=== PATIENT | male | born 1970 | race Caucasian/White ===

== ENCOUNTER 2020-05-03 12:50 | Outpatient (REF) | payer OTHER, SELFPAY | END 2020-05-03 12:51 | disposition home or self-care (01) | LOC: HO.LAB 12:50 | PROVIDERS: Visit Provider Internal Medicine | DX: Z20.828 Contact with and (suspected) exposure to other viral communicable diseases (principal) | CPT/HCPCS: C9803; U0003 ==

== ENCOUNTER 2020-12-18 13:57 | Emergency (ER) | payer OTHER, SELFPAY ==
--- NOTE | ~2020-12-18 | CT_ITS ---
EXAMINATION: CT HEAD WITHOUT CONTRAST CLINICAL INFORMATION: Left-sided headache. Intermittent lightheadedness. Blurred vision. COMPARISON: None. TECHNIQUE: Contiguous axial imaging was performed from the skull base to vertex without intravenous administration of contrast. Coronal and sagittal reformatted images are performed at the CT scanner. [This CT examination was performed using dose optimization techniques as appropriate, variously including the following: *Automated exposure control *Adjustment of mA and/or kV according to patient size (this includes techniques or standardized protocols for targeted exams where dose is matched to indication/reason for exam; i.e. extremities or head) *Use of iterative reconstruction technique] DLP: 850 mGy-cm. FINDINGS: There is no evidence of acute intracranial hemorrhage or territorial infarction. No abnormal mass-effect or midline shift is seen. Major to white matter differentiation is well preserved. No extra-axial fluid collections are identified. There is generalized global volume loss. There is mild prominence of the ventricles and the sulci . There is mild hypodensity of the periventricular white matter due to chronic small vessel ischemic disease. There are vascular calcifications of the internal carotid arteries bilaterally. There is no osseous abnormality. The mastoid air cells and visualized portions of the paranasal sinuses are well-aerated. CT/CT head/brain wo con IMPRESSION: No acute intracranial pathology.
[2020-12-18 14:09] VITALS: BP 130/85; PULSE 86; RESP 16; TEMP 36.7; O2SAT 93; BMI 43.2
--- NOTE | 2020-12-18 17:00 | ECG_ITS ---
Test Reason : FALL Blood Pressure : / mmHG Vent. Rate : 074 BPM Atrial Rate : 074 BPM P-R Int : 116 ms QRS Dur : 082 ms QT Int : 400 ms P-R-T Axes : 043 002 041 degrees QTc Int : 444 ms Normal sinus rhythm Normal ECG No previous ECGs available Referred By: Meagan Pierre Electronically Signed By:BELEN KENNEDY MD
[2020-12-18 17:20] VITALS: BP 120/82; PULSE 69; RESP 20; O2SAT 97
[2020-12-18 17:21] VITALS: BP 127/72; PULSE 67
[2020-12-18 17:22] VITALS: BP 141/73; PULSE 66
[2020-12-18 17:24] VITALS: BP 138/79; PULSE 73
[2020-12-18 17:38] LABS: MANUAL DIFF FLAG NO
[2020-12-18 17:39] LABS: Basophils Percent Auto 0.2 % (0-2); Eosinophils Absolute Auto 0.2 X10*3/uL (0.0-0.4); Eosinophils Percent Auto 1.8 % (0-4); Hematocrit 43.5 % (42-52); Hemoglobin 14.5 g/dl (14.0-18.0); Imm Gran Abs Auto 0.03 X10*3/uL (0.00-0.03); Imm Gran Pct Auto 0.3 % (0.0-0.4); Lymphocytes Percent Auto 29.2 % (20-40); Mean Corpuscular HGB Conc 33.3 g/dl (31.0-36.0); Mean Corpuscular Hemoglobin 30.7 pg (27.0-33.0); Mean Platelet Volume 11.1 fL (9.4-12.4); Monocytes Absolute Auto 0.5 X10*3/uL (0.1-1.2); Neutrophils Absolute Auto 6.4 X10*3/uL (2.0-8.3); Neutrophils Percent Auto 63.5 % (45-73); Platelet Count 203 X10*3/uL (160-400); Red Blood Count 4.73 X10*6/uL (4.60-5.80); Red Cell Distribution Width 13.6 % (11.0-16.0); White Blood Count 10.1 X10*3/uL (4.8-10.8)
[2020-12-18] MEDS: diphenhydrAMINE HCL 50 MG/ML VIAL 12.5 MG IVPUSH (17:40)
[2020-12-18] MEDS: Metoclopramide HCl 10 MG/2 ML VIAL IVPUSH (17:40)
[2020-12-18] MEDS: Acetaminophen 325 MG TABLET 650 MG PO (17:40)
[2020-12-18] MEDS: 0.9 % Sodium Chloride 1,000 ML 999 ML IVCONT (17:41)
--- NOTE | 2020-12-18 17:45 | PC.NURSE ---
pt had a fall at home three months ago, hit his head on the dresser. since then having headaches that are getting worse, with some blurry vision, pain in the front that wraps to the left side and lots of pressure on the back of head. pt alert and oriented, all nuero in tact, vs stable
[2020-12-18 18:11] LABS: Alanine Aminotransferase 39 U/L (0-40); Albumin Level 4.1 g/dL (3.5-5.0); Alkaline Phosphatase 74 U/L (39-117); Anion Gap 16 (12-20); Aspartate Amino Transferase 37 U/L (5-37); Bilirubin Direct < 0.2 mg/dL (0.0-0.5); Bilirubin Total 0.5 mg/dL (0.0-1.0); Blood Urea Nitrogen 12 mg/dL (9-16); Calcium 9.1 mg/dL (8.4-10.2); Carbon Dioxide 24 mmol/L (22-29); Chloride 102 mmol/L (96-108); Creatinine Clr Calc Pharmacy 131.7; Estimated Glomerular Filt Rate > 60; Glucose Random 186 mg/dL (60-115); Magnesium 1.8 mg/dL (1.6-2.6); Potassium 4.9 mmol/L (3.3-5.1); Sodium 137 mmol/L (135-145); Total Protein 7.7 g/dL (6.5-8.0); Troponin-I High Sensitivity < 3.5 ng/L (<3.5-35.0)
--- NOTE | 2020-12-18 18:11 | ED.HEATRA ---
HPI - Head Injury General Chief complaint: Head Injury Stated complaint: head injury from fall Time Seen by Provider: 12/18/20 16:48 Source: patient Mode of arrival: ambulatory History of Present Illness HPI Narrative: 50-year-old male with a past medical history of diabetes, diverticulitis, hyperlipidemia, hypertension, sleep apnea, to the ED complaining of left-sided headache s/p slip and fall and hitting head on dresser 4 months ago, now with intermittent lightheadedness episodes, and constant daily headaches since incident. Admits saw PCP and is scheduled for outpatient CT which he has not yet obtained. Also reports intermittent bilateral blurry vision and generalized fatigue. Denies taking anticoagulation. Denies numbness, tingling, weakness, visual loss, CP/SOB, abdominal pain, nausea/vomiting MD Complaint: head injury and head pain Related Data Previous Rx's Medication Instructions Recorded vegaxllajj-ligpewfnzcotq-crqv 1 cap PO Q4-6H PRN #14 cap 12/18/20 [Fioricet] ibuprofen 400 mg PO Q6H 7 Days #28 tab 12/18/20 Allergies Allergy/AdvReac Type Severity Reaction Status Date / Time No Known Allergies Allergy Verified 12/18/20 14:15 [No Known Allergies*] Review of Systems Review of Systems: Constitutional: No Fever, No Chills, +fatigue ENT/Mouth: No Ear Pain, No Nasal Congestion, No sore throat, No Rhinorrhea Eyes: No Eye Pain, +Vision Changes Cardiovascular: No Chest Pain, No SOB Respiratory: No Cough, No Dyspnea Gastrointestinal: No Nausea, No Vomiting, No Diarrhea, No Abdominal pain Musculoskeletal: No joint pain, No Myalgias, No Joint Swelling Skin: No Skin Lesions, No rash Neuro: No Weakness, No Numbness, No Paresthesias, No Loss of Consciousness, + lightheadedness,+ Headache Yes all other systems are reviewed and are negative Neurologic: Denies Abnormal speech present [facility] Past Medical History Attestation statement: The following information was validated with the patient. Medical History (Updated 12/18/20 @ 18:21 by KAYLEY Corado) Diabetes Diverticulosis Hyperlipidemia Hypertension Sleep apnea Social History Social History Patient Tobacco Use Status: Current someday Tobacco user Use of substances other than those prescribed or required for medical reasons: No Advance Directives: No Advance Directives Information Provided: No Physical Exam Vital Signs: Vital Signs: Last Vital Signs Temp 98.0 F 12/18/20 14:09 Pulse 73 12/18/20 17:24 Resp 20 12/18/20 17:20 BP 138/79 12/18/20 17:24 Pulse Ox 97 12/18/20 17:20 Body Mass Index 43.2 Const: General: cooperative, healthy appearing, no acute distress, well developed, alert and awake Orientation/consciousness: patient oriented x3 Limitations: no limitations HENMT: Head: Yes normal to inspection, Yes atraumatic, No Espinoza's sign and No raccoon eyes Ears: hearing grossly normal bilaterally General nose exam: Normal external nose present Face and sinus: Yes normal facial exam Mouth: Normal oral and palatal mucosa present Throat: Yes posterior oropharynx normal Eyes: General: appearance normal, both eyes and all related structures Pupils: Equal, round and reactive pupils present EOM: EOMs intact bilaterally Neck: Neck: Yes normal visual inspection and Yes no meningeal signs Resp: Effort & Inspection: normal respiratory effort Auscultation: clear to auscultation bilaterally, no rhonchi and no wheezes Cardio: Rate: regular rate Heart sounds: S1 normal heart sound present and S2 normal heart sound present GI: Inspection: Yes normal to inspection Palpation (GI): Soft to palpation, nontender, no guarding and not rigid Skin: Rashes: no rashes Wounds: no wounds Neuro: General: patient oriented x3, gait normal, tone normal, moves all extremities, no meningeal signs, no focal motor deficits and CN's II-XI intact bilaterally Cranial nerves: Yes CN's II-XII intact bilaterally, Yes Equal, round and reactive pupils present and Yes Bilaterally intact EOM present Cognition (Neuro): normal cognition Speech: No Abnormal speech present Gait exam (Neuro): Normal gait present Motor exam (neuro): 5/5 motor strength present throughout and Pronator motor function not present Coordination: jyvrwn-hs-wcob test normal Romberg Test: Negative Extrem: General: Yes normal to inspection and Yes no pedal edema Course Course Course Narrative: -labs unremarkable CT head/brain wo con IMPRESSION: No acute intracranial pathology. -orthostatic vital signs negative >> results discussed with patient including worrisome signs and symptoms and strict return precautions and need to follow-up with PCP, he verbalized understanding feel safe for discharge home MDM - Head Injury MDM Narrative Medical decision making narrative: 50-year-old male with a past medical history of diabetes, diverticulitis, hyperlipidemia, hypertension, sleep apnea, to the ED complaining of left-sided headache s/p slip and fall and hitting head on dresser 4 months ago, now with intermittent lightheadedness episodes, and constant daily headaches since incident. On exam vital signs stable, NAD, no focal neuro deficits. Likely complicated migraine headache vs concussion syndrome. Rule out intracranial pathology. Low concern for CVA/CVT Plan: EKG, labs, head CT, orthostatics, symptomatic remedies, reassess Medical Records Attestation: I reviewed the patient's medical records. Lab Data Attestation: I reviewed the patient's lab results. Result diagrams: 12/18/20 17:33 12/18/20 17:33 Labs: Lab Results 12/18/20 12/18/20 12/18/20 Range/Units 17:33 17:33 17:33 WBC 10.1 (4.8-10.8) X10*3/uL RBC 4.73 (4.60-5.80) X10*6/uL Hgb 14.5 (14.0-18.0) g/dl Hct 43.5 (42-52) % MCV 92.0 (80-98) fL MCH 30.7 (27.0-33.0) pg MCHC 33.3 (31.0-36.0) g/dl RDW 13.6 (11.0-16.0) % Plt Count 203 (160-400) X10*3/uL MPV 11.1 (9.4-12.4) fL Immature Gran % (Auto) 0.3 (0.0-0.4) % Neut % (Auto) 63.5 (45-73) % Lymph % (Auto) 29.2 (20-40) % [place] % (Auto) 5.0 (2-11) % Eos % (Auto) 1.8 (0-4) % Baso % (Auto) 0.2 (0-2) % Lymph # (Auto) 3.0 (1.2-4.9) X10*3/uL [place] # (Auto) 0.5 (0.1-1.2) X10*3/uL Eos # (Auto) 0.2 (0.0-0.4) X10*3/uL Baso # (Auto) 0.0 (0.0-0.2) X10*3/uL Abs Immat Gran (auto) 0.03 (0.00-0.03) X10*3/uL Absolute Neuts (auto) 6.4 (2.0-8.3) X10*3/uL Absolute Nucleated RBC 0.000 (0.0-0.012) X10*3/uL Nucleated RBC % (auto) 0.0 (0.0-0.2) /100WBC Sodium 137 (135-145) mmol/L Potassium 4.9 (3.3-5.1) mmol/L Chloride 102 (96-108) mmol/L Carbon Dioxide 24 (22-29) mmol/L Anion Gap 16 (12-20) BUN 12 (9-16) mg/dL Creatinine 0.78 (0.5-1.4) mg/dL Estim Creat Clear Calc 131.7 Estimated GFR > 60 Random Glucose 186 H (60-115) mg/dL Calcium 9.1 (8.4-10.2) mg/dL Magnesium 1.8 (1.6-2.6) mg/dL Total Bilirubin 0.5 (0.0-1.0) mg/dL Direct Bilirubin < 0.2 (0.0-0.5) mg/dL AST 37 (5-37) U/L ALT 39 (0-40) U/L Alkaline Phosphatase 74 (39-117) U/L Troponin I High Sens < 3.5 (<3.5-35.0) ng/L Total Protein 7.7 (6.5-8.0) g/dL Albumin 4.1 (3.5-5.0) g/dL Discharge Plan Discharge Clinical Impression: Closed head injury, Headache Patient Disposition: Home, Self-Care Instructions: Acute Headache (ED) Additional Instructions: Your head CT was unremarkable. Her blood work was otherwise reassuring. Fioricet is a headache medication, take as needed, in addition take ibuprofen. You may also take Tylenol however just be aware Fioricet has Tylenol mixed in, do not exceed 4 g of Tylenol 1 day. You should follow-up with her primary care doctor as well as Neurology. You could have an element of post concussive syndrome after her head injury. If her symptoms persist or worsen, become unbearable, you have constant or worsening headaches/weakness, visual changes please return to the ED Xavier tomograf?a computarizada de la howie no fue notable. Por lo dem?s, xavier an?lisis de benito fue reconfortante. Fioricet es un medicamento para el dolor de howie, t?cabrera seg?n sea necesario, adem?s de ibuprofeno. Tambi?n puede mikki Tylenol; sin embargo, tenga en cuenta que Fioricet tiene Tylenol mezclado, no exceda los 4 g de Tylenol 1 d?a. Debe hacer un seguimiento con xavier m?dico de atenci?n primaria y con Neurolog?a. Podr?a tener un elemento de s?ndrome posconmoci?n cerebral despu?s de xavier lesi?n en la howie. Si eugene s?ntomas persisten o empeoran, se vuelven insoportables, tiene kayode de howie / debilidad constantes o que empeoran, cambios visuales, por favor regrese al servicio de urgencias. Prescriptions: New ibuprofen 400 mg tablet 400 mg PO Q6H 7 Days Qty: 28 RF: 0 [id number]-zvnvieeqevtzy-zfnv [Fioricet] 50-300-40 mg capsule 1 cap PO Q4-6H PRN (Reason: headache) Qty: 14 RF: 0 Referrals: Betito Siegel PA [Primary Care Provider] - 2 days
[2020-12-18] MEDS: Ketorolac Tromethamine 15 MG/ML VIAL IVPUSH (18:33)
--- NOTE | 2020-12-18 18:34 | PC.NURSE ---
pt reports feeling better pain at 2/10, pt refused the torodal
== END 2020-12-18 18:53 | disposition home or self-care (01) ==
PROVIDERS: Physician Assistant; Emergency Provider Emergency Medicine; PCP Physician Assistant
DX: R51.9 Headache, unspecified (principal); S09.90XA Unspecified injury of head, initial encounter; E11.9 Type 2 diabetes mellitus without complications; I10 Essential (primary) hypertension; W01.190A Fall on same level from slipping, tripping and stumbling with subsequent striking against furniture, initial encounter; Y93.9 Activity, unspecified; Y92.9 Unspecified place or not applicable; Y99.9 Unspecified external cause status
CPT/HCPCS: 36415; 70450; 80048; 80076; 83735; 84484; 85025; 93005; 96361; 96374; 96375; 99285; J1200; J1885; J2765

== ENCOUNTER 2021-09-24 15:31 | Emergency (ER) | payer OTHER, SELFPAY ==
[2021-09-24 15:55] VITALS: BP 142/89; PULSE 97; RESP 16; TEMP 36.4; O2SAT 97; BMI 43.2
== END 2021-09-24 19:52 | disposition left against medical advice (07) ==
LOC: HO.ED 19:16
PROVIDERS: Emergency Provider Emergency Medicine; PCP Physician Assistant
DX: R10.32 Left lower quadrant pain (principal)
CPT/HCPCS: 99281; 99282